=== PATIENT | male | born 1960 | race African-American/Black ===

== ENCOUNTER 2018-12-15 05:11 | Observation (INO) | payer OTHER ==
[~2018-12-15] VITALS: Ht 167.6 cm; Wt 68.0 kg
[2018-12-15] VITALS (16 sets, daily range): BP systolic 131–166; BP diastolic 83–105
[2018-12-15] MEDS ORDERED: NORCO 10-325 T1 EACH ORAL (05:57)
[2018-12-15] MEDS ORDERED: AMLODIPINE BES2.5 MG ORAL (05:57)
[2018-12-15] MEDS ORDERED: LR 1000ml 1,000 ML IVLG SCH (06:23)
--- NOTE | 2018-12-15 06:24 | Anethesia Preoperative Eval ---
Anesthesia Pre-op PMH/ROS General Date of Evaluation: Dec 15, 2018 Time of Evaluation: 07:11 Anesthesiologist: Eileen ASA Score: ASA 3 Mallampati Score Class I : Soft palate, uvula, fauces, pillars visible Class II: Soft palate, uvula, fauces visible Class III: Soft palate, base of uvula visible Class IV: Only hard plate visible Mallampati Classification: Class II Surgeon: Danay Diagnosis: Back Pain Surgical Procedure: PSF L4-5, Pedicle Screws Anesthesia History: none Social History: current smoker Family History: no anesthesia problems Allergies: Coded Allergies: PENICILLINS (Verified Allergy, Unknown, 12/15/18) Medications: see eMAR Patient NPO?: Yes NPO Date: Dec 14, 2018 NPO Time: 2100 Past Medical History Cardiovascular: Reports: HTN Pulmonary: Reports: other - Smoker(marijuna) Gastrointestinal/Genitourinary: Reports: other - BPH Neurologic/Psychiatric: Reports: depression/anxiety Anesthesia Pre-op Phys. Exam Physician Exam Last Vital Signs Date Time Temp Pulse Resp B/P (MAP) Pulse Ox O2 Delivery O2 Flow Rate FiO2 12/15/18 06:00 Room Air 12/15/18 05:53 97.1 64 18 152/86 (108) 100 Constitutional: NAD Neurologic: CN 2-12 intact Cardiovascular: RRR Respiratory: CTA Gastrointestinal: S/NT/ND Airway Exam Mallampati Score: Class II MO: full ROM: full Teeth: missing, broken, other - Poor Dentition Anesthesia Pre-op A/P Risk Assessment & Plan Assessment: ASA 3 Plan: GA, SED, GlideScope Go Status Change Before Surgery: No Pre-Antibiotics Dru Grams Ancef IV Given Within 1 Hr of Incision: Yes Time Given: 07:31 Cheko Arellano MD Dec 15, 2018 06:24
[2018-12-15] MEDS ORDERED: Zemuron 50mg/5ml Inj IV ONE (06:26)
[2018-12-15] MEDS ORDERED: Acetaminophen (Non formulary) 100 ML IV ONE (06:30)
[2018-12-15] MEDS ORDERED: Atropine Sulfate 0.4mg/ml inj IVP PRN (06:30)
[2018-12-15] MEDS ORDERED: Metoclopramide 10mg/2ml Inj IVP PRN (06:30)
[2018-12-15] MEDS ORDERED: Ketorolac 30mg Inj IV PRN ×2 (06:30)
[2018-12-15] MEDS ORDERED: Labetalol 5mg/ml 20ml vial IV PRN (06:30)
[2018-12-15] MEDS ORDERED: fentaNYL 100 mcg/2 mL IV PRN (06:30)
[2018-12-15] MEDS ORDERED: Meperidine 50mg/ml Inj(FOR RIGORS ONLY) IVP PRN (06:30)
[2018-12-15] MEDS ORDERED: HYDROcodone/Acetamin 5/325 tab ORAL PRN (06:30)
[2018-12-15] MEDS ORDERED: Midazolam 2mg/2ml Inj IVP PRN (06:30)
[2018-12-15] MEDS ORDERED: HYDROcodone/Acetamin 7.5/325 tab ORAL PRN (06:30)
[2018-12-15] MEDS ORDERED: DiphenhydrAMINE 50mg/ml Inj IVP PRN (06:30)
[2018-12-15] MEDS ORDERED: oxyCODONE HCL/Acetaminophen 5/325mg ORAL PRN (06:30)
[2018-12-15] MEDS ORDERED: LORazepam Inj 2mg/ml 1ml IV PRN (06:30)
[2018-12-15] MEDS ORDERED: Gelfoam Size TOPIC ONE (06:42)
[2018-12-15] MEDS ORDERED: Lidocaine 1% 10mg/ml/Epi 0.005mg/ml 30ml vial INJ ONE (06:42)
[2018-12-15] MEDS ORDERED: Thrombin 5000 units TOPIC ONE (06:42)
[2018-12-15] MEDS ORDERED: Bacitracin 50000 Units Vial ONE (06:43)
[2018-12-15] MEDS ORDERED: Lidocaine 1% Plain 30 ml INJ ONE (06:43)
[2018-12-15] MEDS ORDERED: Dexamethasone 4mg/ml vial ONE (06:45)
[2018-12-15] MEDS ORDERED: Sodium Chloride 10ml vial INJ ONE (06:45)
[2018-12-15] MEDS ORDERED: Lidocaine 1% MPF 10mg/ml 5ml ONE (06:45)
[2018-12-15] MEDS ORDERED: Dexamethasone 20mg/5ml IVP ONE (07:00)
[2018-12-15] MEDS ORDERED: Sterile Water Irrig 1000ml IRRIG ONE (07:00)
[2018-12-15] MEDS ORDERED: ceFAZolin sod 1 GM in NS 55 ML IVPB ONE (07:00)
[2018-12-15] MEDS ORDERED: NS Irrig 1000ml ONE (07:00)
[2018-12-15] MEDS ORDERED: Propofol 1,000mg/ 100ml btl IV ONE ×2 (07:00)
[2018-12-15] MEDS ORDERED: LR 1000ml ONE (07:00)
[2018-12-15] MEDS ORDERED: Bacitracin Oint 15gm Tube TOPIC ONE (07:16)
[2018-12-15] MEDS ORDERED: Chloraseptic Spray 20mL Bottle ORAL PRN (07:30)
[2018-12-15] MEDS ORDERED: Hydromorphone 0.5mg/0.5ml inj IVP PRN (07:30)
[2018-12-15] MEDS ORDERED: HYDROmorphone 1mg/ml Carpuject SUBQ PRN (07:30)
[2018-12-15] MEDS ORDERED: HYDROcodone/Acetamin 10/325 tab ORAL PRN (07:30)
--- NOTE | 2018-12-15 08:15 | Immediate Post-Op Evaluation ---
Immediate Post-Op Evalulation Immediate Post-Op Evalulation Procedure: PSF L4-5, Pedicle Screws Date of Evaluation: Dec 15, 2018 Time of Evaluation: 09:27 IV Fluids: 600 LR Blood Products: 0 Estimated Blood Loss: 20 Urinary Output: 500 Blood Pressure Systolic: 162 Blood Pressure Diastolic: 98 Pulse Rate: 69 Respiratory Rate: 16 O2 Sat by Pulse Oximetry: 100 Temperature (Fahrenheit): 97 Pain Score (1-10): 2 Nausea: No Vomiting: No Complications 0 Patient Status: awake, reacts, patent, extubated, none Hydration Status: adequate Dru grams Ancef IV Given Within 1 Hr of Incision: Yes Time Given: 07:31 Cheko Arellano MD Dec 15, 2018 08:15
[2018-12-15] MEDS ORDERED: fentaNYL 100 mcg/2 mL IV ONE (08:23)
--- NOTE | 2018-12-15 09:11 | Brief Operative Note ---
Immediate Post Operative Note Operative Note Chief Complaint: Post trauma back pain Pre-op Diagnosis: L4-L5 instability pain Procedure: L4-L5 pedicle screw instrumentation SSEP Fluro Local Magnification Post-op Diagnosis: same as pre-op Findings: consistent w/pre-op dx studies Surgeon: Danay CROFT Fine Arts Packer: Nahun CADENA Anesthesiologist: Eileen CROFT Anesthesia: general Specimen: none Complications: none Condition: stable Fluids: anesthesia Estimated Blood Loss: none Drains: none Implant(s) used?: Yes Claudio Jon MD Dec 15, 2018 09:11
[2018-12-15] MEDS ORDERED: Naloxone 0.4mg/ml Inj IVP PRN (09:15)
--- NOTE | 2018-12-15 09:26 | Diagnostic Imaging Report ---
INDICATION: Pain, intraoperative TECHNIQUE: Intraoperative imaging Fluoroscopy time: 17.2 seconds Total dose: 0.17706 mGym2 Total number of images: 3 COMPARISON: None FINDINGS: 6 intraoperative images demonstrate surgical tool projected posteriorly to what is presumably the L4 vertebral body. Subsequent images demonstrate placement of unilateral posterior fusion hardware bridging L4 and L5 on the right IMPRESSION: Intraoperative imaging, as described
[2018-12-15] MEDS: Hydromorphone 0.5mg/0.5ml inj IVP PRN ×2 (09:54→10:11)
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
--- NOTE | 2018-12-15 10:50 | NUR ---
NURSE NOTES: Received report from Melodie MULLER. Patient is awake alert and oriented x4, no acute distress noted. Reporting pain rated 6/10 in back, but patient reports pain is manageable at this time. No numbness or tingling noted in extremities. Dressing clean, dry, intact. IV intact and asymptomatic. SCD's on. Neuro check assessed (see intervention). Patient updated on plan of care. Side rails upx3, bed low and locked, call light in reach. Will continue to monitor.
[2018-12-15] MEDS: Dronabinol 2.5mg Cap ORAL SCH ×3 (11:19→18:37)
[2018-12-15] MEDS: D5 1/2NS 1,000 ML IV SCH ×2 (11:22→17:11)
[2018-12-15] MEDS ORDERED: Tamsulosin 0.4mg cap ORAL SCH (11:30)
--- NOTE | 2018-12-15 15:21 | NUR ---
NURSE NOTES: Advanced diet per MD order. Patient tolerated clear liquid diet well, did report nausea but no emesis, nausea relieved with Zofran. Patient voided 800mL of clear, yellow urine with no difficulty noted. Has gotten up x1 with physical therapist, patient ambulates steadily and safely with walker. Will continue to monitor.
[2018-12-15] MEDS ORDERED: ceFAZolin sod 1 GM in D5W 55 ML IV SCH (15:30)
--- NOTE | 2018-12-15 16:38 | NUR ---
NURSE NOTES: While drawing up subq dilaudid, medication from carpuject spilled out of vial onto workstation. Notified charge nurse of error and called pharmacy. Notified Confucianist in pharmacy who stated to waste medication with charge nurse and pull out new carpuject and administer to patient. Wasted medication with charge nurse Elham and pulled out new carpuject and administered to patient.
--- NOTE | 2018-12-15 16:49 | NUR ---
P.T NOTE: P.T EVALUATION COMPLETED . EDUCATION PROVIDED TO PATIENT RE: SPINAL/MOVEMENT PRECAUTIONS AND PROPER BODY MECHANICS TO INCORPORATE WITH ADL/FUNCTIONAL MOBILITIES THRU WRITTEN HANDOUTS , DISCUSSION/DEMONSTRATION. PATIENT VERBALIZED GOOD UNDERSTANDING AND ABLE TO RETURN DEMONSTRATION INDEPENDENTLY. PATIENT CURRENTLY FUNCTIONING INDEPENDENTLY WITHIN THE SURGICAL GUIDELINES . NO FURTHER P.T FOLLOW NEEDED. RECOMMEND FWW AT [place]. Addendum: 12/15/18 at 1650 by RENETTA CADE PT Amended: Links added.
--- NOTE | 2018-12-15 18:00 | NUR ---
NURSE NOTES: Patient confirmed he has raised toilet seat and walker at home.
--- NOTE | 2018-12-15 19:45 | NUR ---
NURSE NOTES: Pt lying in bed w/family at bedside, bed in lowest position, and call light within reach. Pt A&Ox4, surgical site C/D/I, and in no apparent distress. Pt scheduled to be discharged today -- just waiting for SBP to be < 160 mm Hg. Will continue to monitor.
--- NOTE | 2018-12-15 19:55 | NUR ---
HAND-OFF: Report given to Kirill MULLER. Endorsed to discharge patient. Discharge paperwork signed by patient.
--- NOTE | 2018-12-15 21:15 | NUR ---
NURSE NOTES: Pt escorted via w/c by charge nurse downstairs w/discharge summary and all belongings accounted for and in stable condition. IV & ID wristband removed prior to D/C. Instructed pt to follow up with Dr. Jon outpatient.
--- NOTE | 2018-12-16 09:00 | Operative Note - Dictated ---
DATE OF OPERATION: 12/15/2018 ADMITTING/PREOPERATIVE DIAGNOSIS: Posttraumatic severe lumbosacral back pain, instability. POSTOPERATIVE DIAGNOSIS: Posttraumatic severe lumbosacral back pain, instability. SURGEON: Claudio Jon, PhD, M.D. PAINT AND TABLE EDGER: TAMMI Cruz ANESTHESIOLOGIST: Cheko Arellano M.D. ANESTHESIA: General with intubation. ESTIMATED BLOOD LOSS: Less than 5 mL. COMPLICATIONS: None. POSTOPERATIVE CONDITION: Good/stable. SPECIMEN: None. PROCEDURE: Pedicle screw instrumentation, L4-L5, right SSEP monitoring, high-power dissection, intraoperative fluoroscopy interpreted by surgeon, local anesthetic applied by surgeon. DESCRIPTION OF PROCEDURE: The patient was brought to the operating room and in the supine position, general anesthesia with intubation was induced. IV antibiotics, IV Decadron were administered 30 minutes prior to incision time. The patient was positioned appropriately in the prone position. Lumbodorsal spine was sterilely prepped. Under sterile conditions, spinal needle was placed in subcutaneous tissue only. The cross-table image was obtained under sterile conditions demonstrating the correct level for further incision placement. Level was marked. Needle removed. Back re-sterilely prepped and draped free in usual sterile fashion. A longitudinal incision midline over the appropriate intervals sharply placed through dermis and epidermis. Electrocautery dissection was carried through the subcutaneous tissue to the level of lumbodorsal fascia and incised to the right of midline only, subperiosteal dissection of the paraspinal muscles, the pars interarticularis. Marker placed, cross-table image obtained under sterile conditions demonstrating the correct level pedicle screw instrumentation. Pedicle screw instrumentation was undertaken as appropriately indicated at L4 and L5 with sequential probing, tapping, determination of cortical wall integrity ball-tip probe. Insertion of the appropriate length screw followed with electrical stimulation 12 milliamps recorded. Interconnecting dash torqued into position as appropriate 45 mm in length. Screws 45 mm in length, 5.5 mm in diameter. Wound was irrigated with antibiotic-containing saline. FloSeal applied. Reapproximation of lumbodorsal fascia, subcutaneous tissue, dermis and epidermis reapproximated with staple sutures. Local anesthetic 1% lidocaine with epinephrine introduced in the subcutaneous interval bilateral and lateral aspects of the incision. Sterile bandage applied, maintained in place with tape. The patient awakened and extubated in the operating room, and transferred to postop recovery in good stable condition. Claudio Jon M.D. DR: AUG[place]A JOB#: [id number] CC:
--- NOTE | 2018-12-16 11:38 | 48 Hour Post Anesthesia Eval ---
Post Anesthesia Evaluation Procedure: PSF L4-5, Pedicle Screws Date of Evaluation: Dec 16, 2018 Airway: patent Nausea: No Vomiting: No Pain Intensity: 1 Hydration Status: adequate Cardiopulmonary Status: at baseline Mental Status/LOC: patient returned to baseline Post-Anesthesia Complications: 0 Follow-up care needed: ready to discharge Bryanna Concepcion MD Dec 16, 2018 11:38
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
== END 2018-12-15 20:53 | disposition home health service (06) ==
LOC: SUR 05:11 → 3E 10:58 → UNDODISOB 21:10
DX: M54.5 Low back pain (principal); M53.2X7 Spinal instabilities, lumbosacral region; M48.061 Spinal stenosis, lumbar region without neurogenic claudication; I10 Essential (primary) hypertension; F32.9 Major depressive disorder, single episode, unspecified; F41.9 Anxiety disorder, unspecified; F17.200 Nicotine dependence, unspecified, uncomplicated; Z88.0 Allergy status to penicillin; Z79.899 Other long term (current) drug therapy; F12.90 Cannabis use, unspecified, uncomplicated
CPT/HCPCS: 22840; 36415; 72020; 76000; 86850; 86900; 86901; 96360; 96361; 96372; 96374; 97161; C1713; J0690; J1100; J1170; J2175; J2250; J2405; J2704; J3010; 94003; 94150